=== PATIENT | female | born 1965 | race Caucasian/White ===

== ENCOUNTER 2021-12-18 11:08 | Day surgery (SDC) | payer MEDICARE, BC ==
[2021-12-18] MEDS ORDERED: Sodium Chloride 0.9(Preservative Free) 10 ML IJ ONE (11:09)
[2021-12-18] MEDS ORDERED: Depo-Medrol 40 MG/ML IM ONE (11:09)
[2021-12-18] MEDS ORDERED: DIPRIVAN 200 MG/20 ML IV ONE (12:34)
[2021-12-18] MEDS ORDERED: Lactated Ringers 1,000 ML IV ONE (13:09)
--- NOTE | 2021-12-18 17:35 | XRAY ---
Indication: Left L4-S1 transforaminal BENITEZ. Intraoperative fluoroscopy provided for 34 seconds. 5 digital spot image submitted for interpretation demonstrates posterior needle tips projecting over the expected left L4 and L5 nerve roots. Small amount of contrast injected for needle tip placement. Correlate with intraoperative findings/report.
--- NOTE | 2021-12-18 17:45 | XRAY ---
34 seconds fluoroscopy time in surgery for left L4-S1 transforaminal BENITEZ.
== END 2021-12-18 13:03 | disposition home or self-care (01) ==
LOC: SDC-PAIN 11:08
PROVIDERS: ATTEND Psychiatry & Neurology Pain Medicine
DX: M54.16 Radiculopathy, lumbar region (principal); E11.9 Type 2 diabetes mellitus without complications; Z79.899 Other long term (current) drug therapy
CPT/HCPCS: 64483; 64484; 72100; 77003; 82947; J1030; J2704; Q9966